=== PATIENT | male | born 1980 ===

== ENCOUNTER 2025-02-20 14:36 | Emergency (ER) | payer OTHER ==
[~2025-02-20] VITALS: Ht 165.1 cm; Wt 77.1 kg
[2025-02-20] MEDS ORDERED: HYDROMORPHONE 2 MG/1 ML DISP.SYRIN ONE (14:57)
[2025-02-20] MEDS ORDERED: ONDANSETRON ODT 4 MG TAB.RAPDIS ONE (14:57)
[2025-02-20] MEDS: HYDROMORPHONE 1 MG/1 ML DISP.SYRIN IM ONE (15:00)
[2025-02-20] MEDS: ONDANSETRON ODT 4 MG TAB.RAPDIS SL ONE (15:01)
[2025-02-20] MEDS ORDERED: PROPOFOL 200 MG/20 ML BOTTLE ONE (15:56)
[2025-02-20] MEDS ORDERED: FENTANYL CITRATE 100 MCG/2 ML AMPUL ONE (15:56)
[2025-02-20 16:00] VITALS: O2SAT 100
[2025-02-20] MEDS: FENTANYL CITRATE 100 MCG/2 ML AMPUL IV ONE (16:05)
[2025-02-20] MEDS: PROPOFOL 200 MG/20 ML BOTTLE IV ONE (16:06)
[2025-02-20] MEDS ORDERED: KETOROLAC TROMETHAMINE 30 MG INJ ONE (16:22)
[2025-02-20] MEDS: KETOROLAC TROMETHAMINE 30 MG INJ IVP ONE (16:30)
[2025-02-20 17:49] LABS: PLATELET COUNT (AUTO) 208 K/uL (152-348); RED BLOOD CELL COUNT(AUTO) 4.15 MIL/uL (4.06-5.63); RED CELL DISTRIBUTION WIDTH 14.1 % (12.1-16.2); WHITE BLOOD COUNT (AUTO) 8.9 K/uL (3.6-10.2)
[2025-02-20 17:55] LABS: CREATININE 0.6 mg/dL (0.6-1.3); SODIUM SERUM 139 mmol/L (136-145); UREA NITROGEN, BLOOD 14 mg/dL (7-18)
[2025-02-20] MEDS ORDERED: LISI20TA30 PO (17:58)
[2025-02-20 18:00] VITALS: BP 127/79; O2SAT 98
== END 2025-02-20 18:09 | disposition short-term general hospital (02) ==
LOC: ER 14:47
DX: S82.851A Displaced trimalleolar fracture of right lower leg, initial encounter for closed fracture (principal); E88.810 Metabolic syndrome; Z86.2 Personal history of diseases of the blood and blood-forming organs and certain disorders involving the immune mechanism; Z79.899 Other long term (current) drug therapy; W18.39XA Other fall on same level, initial encounter; Y93.89 Activity, other specified; Y92.89 Other specified places as the place of occurrence of the external cause; Y99.9 Unspecified external cause status
CPT/HCPCS: 99285; 27840; 96374; 71045; 80048; 85025; 85730; 73610 ×2; 93005; 96372; J1885; J3010; J1171; J7040; 36415; A4606; A4663; J3490; Q0162